=== PATIENT | male | born 1955 | race Caucasian/White ===

== ENCOUNTER 2018-12-14 08:50 | Emergency (ER) | payer MEDICARE, OTHER ==
[2018-12-14 09:08] VITALS: O2SAT 94
--- NOTE | 2018-12-14 09:14 | ERPHSYRPT ---
- History of Present Illness Time Seen by Provider: 12/14/18 09:00 Historian: patient Exam Limitations: no limitations Patient Subjective Stated Complaint: pt reports fall from standing yesterday, states that a tree limb caused him to fall and land on some rocks injuring his right side ribs. pt reports increased pain with movement and deep breath. pt denies any other injury at this time. Triage Nursing Assessment: pt is aox3, pt ambulatory to trt room with slow, steady gait, pupils perrl, afebrile, resps easy and non labored, lung sounds are clear throughout. pt skin pink warm dry. yellow bruising noted to the right lateral chest, skin is intact. Physician History: Right sided chest wall/rib pain after fall onto rocks from a standing position after tripping on a tree branch. Timing/Duration: yesterday Activities at Onset: activity, other (deep breathing, movements) Quality: aching, sharpness Location: other (right front of chest to lateral ribs) Chest Pain Radiation: no radiation Severity of Pain-Max: moderate Severity of Pain-Current: mild Modifying Factors: Improves With: breathing, coughing, movement, palpation Associated Symptoms: hurts to breathe, No nausea, No vomiting, No palpitations, No heartburn, No abdominal pain, No shortness of breath, No cough, No diaphoresis, No chills, No fever, No fatigue, No weakness, No swelling/lump in chest, No syncope, No rash, No headache, No dizziness, No edema, No back pain Prior Chest Pain/Cardiac Workup: no prior chest pain Nitro Today/Relief: no nitro taken today Aspirin Treatment Today: no aspirin today Home Medications: Albuterol Sulfate [Ventolin Hfa] 1 inh PO UD PRN 12/14/18 [History] Aspirin EC 81 mg [Ecotrin 81 mg] 81 mg PO DAILY 12/14/18 [History] Clopidogrel Bisulfate [Clopidogrel] 75 mg PO DAILY 12/14/18 [History] Fluticasone Propionate [Flonase NASAL] 1 spray INTRANASAL DAILY PRN [History] Furosemide 40 mg PO DAILY 12/14/18 [History] Loratadine 10 mg [Claritin 10 mg] 10 mg PO DAILY 12/14/18 [History] Losartan Potassium 100 mg PO DAILY 12/14/18 [History] Metoprolol Tartrate 25 mg PO BID 12/14/18 [History] Mv-Mn/Folic Acid/Lutein/Kdp324 [Mens Multivit High Potency Tab] 1 tab PO DAILY 12/14/18 [History] [place]-3 Fatty Acids [Fish Oil Concentrate] 1,000 mg PO DAILY 12/14/18 [History] Simvastatin 20Mg [Zocor 20Mg] 20 mg PO DAILY 12/14/18 [History] Hx Tetanus, Diphtheria Vaccination/Date Given: Yes Hx Influenza Vaccination/Date Given: Yes Hx Pneumococcal Vaccination/Date Given: Yes Immunizations Up to Date: Yes - Review of Systems Constitutional: No Fever, No Chills Eyes: No Eye Pain, No Vision Changes Ears, Nose, & Throat: No Nose Pain, No Nose Discharge, No Epistaxis, No Loose Teeth, No Painful Swallowing Respiratory: No Cough, No Dyspnea Cardiac: No Edema, No Palpitations, No Syncope Abdominal/Gastrointestinal: No Abdominal Pain, No Nausea, No Vomiting, No Diarrhea Genitourinary Symptoms: No Dysuria Musculoskeletal: No Back Pain, No Neck Pain Skin: No Rash Neurological: No Dizziness, No Focal Weakness, No Sensory Changes Psychological: No Symptoms Endocrine: No Symptoms Hematologic/Lymphatic: No Easy Bleeding, No Easy Bruising All Other Systems: Reviewed and Negative - Past Medical History Pertinent Past Medical History: Yes Cardiac History: Coronary Artery Disease, Hypertension Respiratory History: COPD Musculoskeletal History: Arthritis - Past Surgical History Past Surgical History: Yes Cardiac: CABG, Cardiac Catheterization, Cardiac Stent - Social History Smoking Status: Never smoker Drug Use: none Patient Lives Alone: No - Nursing Vital Signs Nursing Vital Signs: Initial Vital Signs Temperature 97.9 F 12/14/18 08:56 Pulse Rate 70 12/14/18 08:56 Respiratory Rate 22 12/14/18 08:56 Blood Pressure 164/95 12/14/18 08:56 O2 Sat by Pulse Oximetry 94 L 12/14/18 08:56 Pain Scale Pain Intensity 9 - Physical Exam General Appearance: no apparent distress, alert Eye Exam: PERRL/EOMI, eyes nml inspection Ears, Nose, Throat Exam: normal ENT inspection, moist mucous membranes Neck Exam: normal inspection, non-tender, supple, full range of motion Respiratory Exam: normal breath sounds, chest tenderness (right sided), lungs clear, airway intact, No respiratory distress, No diminished breath sounds, No accessory muscle use, No prolonged expirations, No crackles/rales, No rhonchi, No wheezing, No stridor, No pleural rub Cardiovascular Exam: regular rate/rhythm, normal heart sounds, normal peripheral pulses, capillary refill <2 sec Gastrointestinal/Abdomen Exam: soft, No tenderness, No mass Back Exam: normal inspection, No CVA tenderness, No vertebral tenderness Extremity Exam: normal inspection, normal range of motion Neurologic Exam: alert, oriented x 3, cooperative, normal mood/affect, sensation nml, No motor deficits Skin Exam: normal color, warm, dry, No abrasion, No cyanosis, No laceration SpO2 Interpretation: normal SpO2: 94 O2 Delivery: Room Air - Radiology Exams Chest X-ray Interpretation: Interpreted by me, Reviewed by me, Negative, No Fracture, No Pneumonia, No Pneumothorax, No Infiltrates, Nml Mediastinum, Other (pper radiologist interpretation: Right 4/5/6 anterior rib fractures of uncertain chronicity and right base infiltrate/atelectasis/small effusion) Ordered Tests: Active Orders 24 hr Category Date Time Status CHEST 2 VIEWS (PA AND LAT) Stat Exams 12/14/18 08:57 Completed Incentive Spirometry UD RT 12/14/18 08:58 Active - Progress Progress: unchanged Air Movement: good Progress Note: 12/14/18 09:26 No respiratory distress, no accessory muscle use, no hypoxia 12/14/18 09:35 x-ray interpretation by radiologist shows uncertain chronicity of anterior right fourth/fifth/sixth rib fractures with probable atelectasis aat theright lung base versus early infiltrate/small effusion. Patient does have a history of past fractures to the right ribs from past traumas and my interpretation of the x-rays are most consistent with the fractures noted by the radiologist as being most likely old and not acute in chronicity. Treatment will not changes patient will have rib pain/chest wall pain pain control as well as to do incentive spirometry at home while he is in pain. Patient and family understand we will not place him in any type of restrictive lala such as a rib jacket or any type of wraps around his chest due to the high risk of complications such as pneumonia from this type of treatment. Blood Culture(s) Obtained: No Antibiotics given: No Counseled pt/family regarding: diagnosis, need for follow-up, rad results - Departure Departure Disposition: Home Clinical Impression: Atelectasis of right lung Contusion of right chest wall Qualifiers: Encounter type: initial encounter Qualified Code(s): S20.211A - Contusion of right front wall of thorax, initial encounter Hypertension Qualifiers: Hypertension type: essential hypertension Qualified Code(s): I10 - Essential ( primary) hypertension Multiple rib fractures Qualifiers: Encounter type: initial encounter Fracture type: closed Condition: Good Critical Care Time: No Referrals: BALDOMERO PARRA [Primary Care Provider] - Follow Up with PCP/3 days Instructions: Atelectasis, Rib Fracture (DC), Bruised Rib Additional Instructions: The x-ray showed most likely old rib fractures at 4, 5, and 6, but they may be new from yesterday's fall. The signs on the chest x-ray that you're not taking deep breaths on the right lower lung. Use the Incentive Spirometry 10 times and hour while awake and pain is still present. return immediately back to the emergency department if any shortness of breath, fever, productive cough, worsening chest pain, worsening pain on inspiration, blood with coughing or any other concerning signs or symptoms that were not present date of return visit for immediate reevaluation in the department. Prescriptions: Etodolac 400 mg [Lodine 400 mg] 400 mg PO BID PRN PRN #20 tablet PRN Reason: Pain
--- NOTE | 2018-12-14 09:32 | XRAY ---
Indication: Right-sided chest pain following fall. Comparison: None PA/lateral chest demonstrates right base infiltrate versus atelectasis with small effusion. Remaining lungs clear. No pneumothorax. Heart is not enlarged with previous CABG surgery. Bony thorax demonstrates right 4/5/6 anterior rib fractures of uncertain chronicity. Impression: Right 4/5/6 anterior rib fractures of uncertain chronicity and right base infiltrate/atelectasis/effusion.
[2018-12-14 09:49] VITALS: BP 155/79; PULSE 64
== END 2018-12-14 09:48 | disposition home or self-care (01) ==
LOC: ED 08:50
DX: S20.211A Contusion of right front wall of thorax, initial encounter (principal); I10 Essential (primary) hypertension; W17.89XA Other fall from one level to another, initial encounter; Y92.488 Other paved roadways as the place of occurrence of the external cause
CPT/HCPCS: 71046; 99283

== ENCOUNTER 2019-12-12 08:30 | Emergency (ER) | payer MEDICARE, OTHER ==
[2019-12-12] MEDS ORDERED: XYLOCAINE 1% HCL 20 ML MDV IJ ONE (08:31)
[2019-12-12] MEDS ORDERED: Rocephin 1000 MG INJ IM ONE (08:44)
[2019-12-12] MEDS ORDERED: Decadron 4 MG PO STA (08:45)
[2019-12-12] MEDS ORDERED: Rocephin 1000 MG INJ ONE (08:50)
--- NOTE | 2019-12-12 08:51 | ERPHSYRPT ---
- History of Present Illness Time Seen by Provider: 12/12/19 08:40 Source: patient Exam Limitations: no limitations Patient Subjective Stated Complaint: sore throat Triage Nursing Assessment: pt to ED c/o sore throat x 4 days. states pain is 10/10 when talking or swallowing. no pain at rest. on assessment throat looks swollen, red, and irritated. no diff breathing or SOB. Physician History: 63 years old presented in the ER with chief complaint of 4 days of sore throat, gradual onset progressively worsening associated with difficulty swallowing solid food causing 10 out of 10 pain. No significant pain if not moving his jaw, eating/drinking. No difficulty breathing. Denies any fever or chills. Denies sick contact. Timing/Duration: gradual onset, days (4) Severity: moderate ENT Location: throat Prearrival Treatment: no prearrival treatment Associated Symptoms: poor solids intake, swollen glands, No fever, No chills, No neck pain Allergies/Adverse Reactions: Iodinated Contrast Media Allergy (Verified 12/12/19 08:45) Home Medications: Albuterol Sulfate [Ventolin Hfa] 1 inh PO UD PRN 12/14/18 [History] Aspirin EC 81 mg [Ecotrin 81 mg] 81 mg PO DAILY 12/14/18 [History] Clopidogrel Bisulfate [Clopidogrel] 75 mg PO DAILY 12/14/18 [History] Fluticasone Propionate [Flonase NASAL] 1 spray INTRANASAL DAILY PRN 12/14/18 [History] Furosemide 40 mg PO DAILY 12/14/18 [History] Loratadine 10 mg [Claritin 10 mg] 10 mg PO DAILY 12/14/18 [History] Losartan Potassium 100 mg PO DAILY 12/14/18 [History] Metoprolol Tartrate 25 mg PO BID 12/14/18 [History] Mv-Mn/Folic Acid/Lutein/Ied586 [Mens Multivit High Potency Tab] 1 tab PO DAILY 12/14/18 [History] [place]-3 Fatty Acids [Fish Oil Concentrate] 1,000 mg PO DAILY 12/14/18 [History] Simvastatin 20Mg [Zocor 20Mg] 20 mg PO DAILY 12/14/18 [History] Hx Tetanus, Diphtheria Vaccination/Date Given: Yes Hx Influenza Vaccination/Date Given: Yes Hx Pneumococcal Vaccination/Date Given: Yes Immunizations Up to Date: Yes Travel Risk - International Travel Have you traveled outside of the country in past 3 weeks: No - Coronavirus Screening Are you exhibiting any of the following symptoms?: No Close contact with a COVID-19 positive Pt in past 14-21 Days: No - Review of Systems Constitutional: No Symptoms Eyes: No Symptoms Ears, Nose, & Throat: Throat Pain, Throat Swelling Respiratory: No Symptoms Cardiac: No Symptoms Abdominal/Gastrointestinal: No Symptoms Genitourinary Symptoms: No Symptoms Musculoskeletal: No Symptoms Skin: No Symptoms Neurological: No Symptoms Psychological: No Symptoms Endocrine: No Symptoms Hematologic/Lymphatic: No Symptoms Immunological/Allergic: No Symptoms - Past Medical History Pertinent Past Medical History: Yes Cardiac History: Coronary Artery Disease, Hypertension Respiratory History: COPD Musculoskeletal History: Arthritis - Past Surgical History Past Surgical History: Yes Cardiac: CABG, Cardiac Catheterization, Cardiac Stent - Social History Smoking Status: Never smoker Exposure to second hand smoke: No Drug Use: none Patient Lives Alone: No - Nursing Vital Signs Nursing Vital Signs: Initial Vital Signs Temperature 98.1 F 12/12/19 08:38 Pulse Rate 81 12/12/19 08:38 Respiratory Rate 18 12/12/19 08:38 Blood Pressure 163/84 12/12/19 08:38 O2 Sat by Pulse Oximetry 95 12/12/19 08:38 Pain Scale Pain Intensity 10 - Physical Exam General Appearance: no apparent distress, alert Eye Exam: bilateral eye: normal inspection, PERRL, EOMI Ear Exam: bilateral ear: auricle normal, canal normal, TM normal Nasal Exam: normal inspection Throat Exam: moist mucus membranes, pharynx swelling, pharynx tenderness, tonsillar exudate, tonsillar swelling, uvula swelling Neck Exam: normal inspection, non-tender, supple, full range of motion Cardiovascular/Respiratory Exam: normal breath sounds, regular rate/rhythm Abdominal Exam: non-tender, soft Neurologic Exam: alert, oriented x 3, cooperative Skin Exam: normal color SpO2 Interpretation: normal SpO2: 95 O2 Delivery: Room Air Ordered Tests: Medication Summary Discontinued Medications Generic Name Dose Route Start Last Admin Trade Name Freq PRN Reason Stop Dose Admin Ceftriaxone Sodium 1,000 mg 12/12/19 08:44 12/12/19 08:56 Rocephin 1000 Mg Inj IM 12/12/19 08:45 1,000 mg STAT ONE Administration Ceftriaxone Sodium Confirm 12/12/19 08:50 Rocephin 1000 Mg Inj Administered 12/12/19 08:51 Dose 1,000 mg .ROUTE .STK-MED ONE Dexamethasone 12 mg 12/12/19 08:45 12/12/19 08:56 Decadron 4 Mg PO 12/12/19 08:46 12 mg ONCE STA Administration Lab/Rad Data: Laboratory Results 12/12/19 Range/Units 09:15 Group A Strep Antibody NOT DETECTED (NEGATIVE) - Progress Progress: unchanged Progress Note: 12/12/19 08:50 Patient has bilateral enlarged tonsils with exudates and swelling of the uvula. Does not have any respiratory distress at all. I have obtained strep throat but patient is given a dose of Rocephin IM and Decadron orally to help relieve the inflammation. I would continue with Augmentin and prednisone to go home and recommended outpatient follow-up for reevaluation. Recommended soft diet. At this point patient does not have any respiratory compromise but discussed with patient in detail about signs symptoms of worsening needing return to ER immediately which he seems understanding. Stable for discharge. Counseled pt/family regarding: lab results, diagnosis, need for follow-up - Departure Departure Disposition: Home Clinical Impression: Acute pharyngitis Qualifiers: Pharyngitis/tonsillitis etiology: unspecified etiology Qualified Code(s): J02.9 - Acute pharyngitis, unspecified Condition: Stable Critical Care Time: No Referrals: BALDOMERO PARRA [Primary Care Provider] - (1-2 days for re evaluation) Instructions: Sore Throat, Adult (DC), Strep Throat (DC) Additional Instructions: Do warm salt water gargles. Take pain medications as needed. Take soft diet. Follow-up with primary care for reevaluation in 1 to 2 days. Return to ER for increasing swelling/pain/fever chills/difficulty breathing etc. Prescriptions: Hydrocodone/APAP 5-325 Tab^^^ [[place] 5-325 Tablet^^^] 1 tab PO Q6HPRN PRN #10 tablet MDD 6 PRN Reason: Pain Amox Tr/Potass Clav. 875 mg [Augmentin 875-125 Tablet] 875 mg PO BID 10 Days #20 tablet Prednisone 20 mg [Deltasone 20 mg] 60 mg PO DAILY 5 Days #15 tablet
[2019-12-12 09:54] VITALS: BP 163/75; PULSE 87
[2019-12-12 14:33] VITALS: O2SAT 95
== END 2019-12-12 09:46 | disposition home or self-care (01) ==
LOC: ED 08:30
DX: J02.9 Acute pharyngitis, unspecified (principal)
CPT/HCPCS: 87651; 96372; 99284; J0696; A9270-GY

== ENCOUNTER 2022-02-01 09:28 | Day surgery (SDC) | payer MEDICARE, OTHER ==
--- NOTE | 2022-02-01 07:59 | HP ---
DATE OF SURGERY: 02/01/2022 HISTORY OF PRESENT ILLNESS: The patient is a 66-year-old in need of screening colonoscopy. The patient has history of polyps, last colonoscopy five years ago. No bloody stools. No change in bowel movements. PAST MEDICAL HISTORY: Arthritis, hypertension, coronary artery disease, chronic obstructive pulmonary disease, history of myocardial infarction in the past. PAST SURGICAL HISTORY: Coronary stents. Coronary artery bypass graft in the past. MEDICATIONS: Mens 50+ multivitamins, psyllium husk, CoQ10, lutein, [place]-3/salmon oil, Flonase, atorvastatin, furosemide, clopidogrel, metoprolol, losartan. ALLERGIES: NKDA. IODINATED CONTRAST MEDIA. FAMILY HISTORY: Heart disease. No colon cancer. SOCIAL HISTORY: Former smoker. No alcohol abuse. REVIEW OF SYSTEMS: Fourteen systems reviewed. No chest pain or palpitations. Other systems negative or noncontributory as above and per preadmission questionnaire. PHYSICAL EXAMINATION: GENERAL: No acute distress. HEENT: Sclerae nonicteric. NECK: No JVD. CHEST: Equal excursion, nonlabored breathing. CVS: Regular rate and rhythm. ABDOMEN: Soft. No peritoneal signs. EXTREMITIES: No significant edema. NEURO: Alert, oriented, moving extremities symmetrically. RECTAL: Deferred timed to endoscopy exam. PSYCH: Appropriate mood and affect. IMPRESSION: History of polyps, in need of follow up screening colonoscopy. I feel he is a candidate. He was shown the risk sheet explained the procedure in detail including bleeding or infection, risk of bowel injury or perforation possibly requiring further procedure, risk of missed or nondiagnosis or incomplete exam possibly requiring barium enema, other studies or procedures, general risk of anesthesia or sedation, risk of bowel prep or sedation but not limited to, consent obtained. Will proceed with outpatient follow up screening colonoscopy.
[2022-02-01] MEDS: Lactated Ringers 1,000 ML IV SCH (09:55)
[2022-02-01] MEDS ORDERED: Lactated Ringers 1,000 ML IV SCH (10:00)
[2022-02-01] MEDS ORDERED: Xylocaine-Mpf 2% 5 Ml Vial ONE (11:58)
[2022-02-01] MEDS ORDERED: DIPRIVAN 200 MG/20 ML IV ONE (11:58)
[2022-02-01] MEDS ORDERED: Versed 2 MG/2 ML Injection ONE (11:58)
[2022-02-01] MEDS ORDERED: Ketamine HCl 50 MG/ML ONE (11:59)
[2022-02-01 13:07] VITALS: O2SAT 95
[2022-02-01 13:26] VITALS: BP 176/95; PULSE 68
--- NOTE | 2022-02-01 14:01 | OP ---
SURGERY DATE/TIME: 02/01/2022 1231 PREOPERATIVE DIAGNOSIS: History of polyps, need follow up screening colonoscopy. POSTOPERATIVE DIAGNOSES: 1) ASA Class III. 2) Colon polyps ascending, transverse, sigmoid and rectum. 3) Fair bowel prep. 4) Diverticulosis. 5) Withdrawal time approximately 13 minutes. PROCEDURES: 1) Colonoscopy to cecum. 2) Hot biopsy polypectomy small ascending colon polyp. 3) Hot snare polypectomy of 3 mm proximal ascending colon polyp. 4) Hot snare polypectomy two transverse colon polyps. 5) Hot biopsy polypectomy sigmoid colon small polyp x2 or 3. 6) Hot biopsy polypectomy of rectal polyp x3. SURGEON: Dr. Bladimir Herrera. ANESTHESIA: MAC. ESTIMATED BLOOD LOSS: Minimal. INDICATIONS: As noted above. Risks and benefits explained in detail but not limited to and consent obtained. DESCRIPTION OF PROCEDURE AND FINDINGS: The patient is taken to the endoscopy room. MAC anesthesia induced. After official time out and no disagreement with planned procedure, digital rectal exam did not reveal any rectal masses. Video colonoscope inserted and passed up through the slightly tortuous sigmoid, descending, transverse and ascending colon around to the cecum. Appendiceal orifice and ileocecal valve well visualized. Photo documented. Prep overall was only fair side with a large amount of liquidy semisolid stool this is suctioned irrigated out as clear as possible. The scope is slowly and carefully withdrawn over the next 13 minutes suction irrigating this liquidy stool out. A 3 mm polyp removed with hot snare polypectomy from the ascending colon and another one just a little bit further down in ascending colon removed with hot biopsy polypectomy about 2 to 2.5 mm in size. The scope is then carefully pulled back to the transverse colon. Two polyps were removed with hot snare polypectomy. In the mid and more distal transverse colon, there are two or three small early polyps in the sigmoid colon removed with hot biopsy polypectomy. Two small polyps in the rectum removed with hot biopsy polypectomy. The patient did have some pancolonic diverticulosis more concentrated in the left colon. The scope is withdrawn. Findings discussed with the family out in the waiting area.
== END 2022-02-01 13:28 | disposition home or self-care (01) ==
LOC: SDC 09:28
PROVIDERS: ATTEND Surgery
DX: Z09 Encounter for follow-up examination after completed treatment for conditions other than malignant neoplasm (principal); Z86.010 Personal history of colon polyps; K57.30 Diverticulosis of large intestine without perforation or abscess without bleeding; D12.7 Benign neoplasm of rectosigmoid junction; D12.2 Benign neoplasm of ascending colon; D12.5 Benign neoplasm of sigmoid colon; D12.3 Benign neoplasm of transverse colon
CPT/HCPCS: J2250; J2704